=== PATIENT | female | born 1965 | race Caucasian/White ===

== ENCOUNTER 2022-07-10 12:51 | Emergency (ER) | payer OTHER ==
[~2022-07-10] VITALS: Ht 165.1 cm; Wt 89.3 kg
[2022-07-10 13:10] LABS: BASOPHILS % 0.9 % (0.0-2.0); EOSINOPHILS % 1.6 % (0.0-5.0); HEMATOCRIT. 34.4 % (36.0-48.0); HEMOGLOBIN. 11.2 g/dL (12.0-16.0); LYMPHOCYTES % 14.4 % (20.0-50.0); MEAN CORPUSCULAR HEMOGLOBIN 27.7 pg (28.0-32.0); MEAN CORPUSCULAR VOLUME 84.7 fL (81.0-99.0); MEAN PLATELET VOLUME 8.7 fl (7.4-10.4); NEUTROPHILS % 75.1 % (40.0-76.0); PLATELET 246 x1000/uL (130-400); RED BLOOD CELL COUNT 4.07 mill/uL (4.2-5.4); RED CELL DISTRIBUTION WIDTH 16.4 % (11.6-14.6)
[2022-07-10 13:26] LABS: CHLORIDE 95 mEq/L (98-107)
[2022-07-10 13:47] LABS: ETHANOL BLOOD < 10 mg/dL
[2022-07-10] MEDS ORDERED: IOHEXOL-350 100 ML BOTTLE ONE (15:14)
[2022-07-10] MEDS ORDERED: CLOPIDOGREL 75MG TABLET PO ONE (16:15)
[2022-07-10] MEDS ORDERED: ASPIRIN 81MG TABLET PO ONE (16:15)
[2022-07-10 21:58] VITALS: BP 154/70
== END 2022-07-10 23:59 | disposition short-term general hospital (02) ==
LOC: ER 12:51
DX: I63.9 Cerebral infarction, unspecified (principal); R53.1 Weakness; I12.0 Hypertensive chronic kidney disease with stage 5 chronic kidney disease or end stage renal disease; E11.22 Type 2 diabetes mellitus with diabetic chronic kidney disease; N18.6 End stage renal disease; Z99.2 Dependence on renal dialysis; E78.00 Pure hypercholesterolemia, unspecified
CPT/HCPCS: 36415; 70450; 70496; 70498; 71045; 80053; 80320; 85025; 87426; 93005; 99291; C9803; Q9967; Z7610; G0480

== ENCOUNTER 2022-07-27 09:30 | Inpatient (IN) | payer OTHER ==
[~2022-07-27] VITALS: Ht 165.1 cm; Wt 76.7 kg
[2022-07-27 11:04] LABS: BASOPHILS % 1.2 % (0.0-2.0); EOSINOPHILS % 5.8 % (0.0-5.0); HEMATOCRIT. 31.1 % (36.0-48.0); HEMOGLOBIN. 10.1 g/dL (12.0-16.0); LYMPHOCYTES % 32.3 % (20.0-50.0); MEAN CORPUSCULAR HEMOGLOBIN 28.5 pg (28.0-32.0); MEAN CORPUSCULAR VOLUME 87.6 fL (81.0-99.0); MEAN PLATELET VOLUME 8.9 fl (7.4-10.4); MONOCYTES % 9.2 % (2.0-8.0); NEUTROPHILS % 51.5 % (40.0-76.0); PLATELET 133 x1000/uL (130-400); RED BLOOD CELL COUNT 3.55 mill/uL (4.2-5.4)
[2022-07-27 11:05] LABS: CHLORIDE 100 mEq/L (98-107)
[2022-07-27 11:13] LABS: ETHANOL BLOOD < 10 mg/dL
[2022-07-27] MEDS ORDERED: IOHEXOL-350 100 ML BOTTLE ONE (11:14)
[2022-07-27 11:19] LABS: INR 1.1; PROTHROMBIN TIME 11.7 sec (9.6-11.0)
[2022-07-27] MEDS ORDERED: ASPIRIN 81MG TABLET PO ONE (13:00)
[2022-07-27] MEDS ORDERED: IPRATROPIUM/ALBUTEROL 0.5-3(2.5)MG/3ML NEB HHN PRN (15:00)
[2022-07-27] MEDS ORDERED: CLONIDINE 0.1MG TABLET PO PRN (15:00)
[2022-07-27] MEDS ORDERED: HYDROCODONE/ACETAMINOPHEN 10/325MG TABLET PO PRN (15:00)
[2022-07-27] MEDS ORDERED: ONDANSETRON HCL 4MG/2ML INJ IV PRN (15:00)
[2022-07-27] MEDS ORDERED: ACETAMINOPHEN 325MG TABLET PO PRN ×2 (15:00)
[2022-07-27] MEDS ORDERED: NALOXONE HCL 0.4MG/ML VIAL IV PRN (15:30)
[2022-07-27] MEDS ORDERED: ENOXAPARIN 30MG/0.3ML SYR SUBCUT SCH (21:00)
[2022-07-28] VITALS (27 sets, daily range): BP systolic 90–159; BP diastolic 44–76
[2022-07-28 05:27] LABS: BASOPHILS % 1.1 % (0.0-2.0); EOSINOPHILS % 4.9 % (0.0-5.0); HEMATOCRIT. 31.6 % (36.0-48.0); HEMOGLOBIN. 10.3 g/dL (12.0-16.0); LYMPHOCYTES % 33.3 % (20.0-50.0); MEAN CORPUSCULAR HEMOGLOBIN 28.6 pg (28.0-32.0); MEAN CORPUSCULAR VOLUME 87.6 fL (81.0-99.0); MEAN PLATELET VOLUME 8.9 fl (7.4-10.4); MONOCYTES % 9.1 % (2.0-8.0); NEUTROPHILS % 51.6 % (40.0-76.0); PLATELET 127 x1000/uL (130-400); RED BLOOD CELL COUNT 3.61 mill/uL (4.2-5.4); RED CELL DISTRIBUTION WIDTH 18.3 % (11.6-14.6)
[2022-07-28 06:00] LABS: T4 FREE 0.97 ng/dL (0.76-1.46)
[2022-07-28] MEDS: CLONIDINE 0.3MG TABLET PO PRN (07:15)
[2022-07-28] MEDS: LOSARTAN POTASSIUM 100 MG TABLET PO SCH (09:00)
[2022-07-28] MEDS: AMLODIPINE 10MG TABLET PO SCH (09:00)
[2022-07-28] MEDS: PANTOPRAZOLE SODIUM 40 MG/VIAL IV SCH (09:00)
[2022-07-28] MEDS ORDERED: AMLODIPINE 10MG TABLET PO SCH (09:00)
[2022-07-28] MEDS ORDERED: METOPROLOL TARTRATE 50MG TABLET PO SCH (09:15)
[2022-07-28] MEDS ORDERED: NICARDIPINE 100 MG in SODIUM CHLORIDE 0.9% 60 ML IV PRN (09:45)
[2022-07-28] MEDS: LEVETIRACETAM 500MG PREMIX 100 ML IV SCH ×3 (09:51→18:00)
[2022-07-28] MEDS: NICARDIPINE 100 MG in SODIUM CHLORIDE 0.9% 60 ML IV PRN (10:12)
[2022-07-28] MEDS: HYDRALAZINE HCL 100MG TABLET PO SCH ×2 (14:00→22:00)
[2022-07-28] MEDS: DEXT 5%/0.9% NACL 1,000 ML IV SCH (18:58)
[2022-07-28] MEDS: ATORVASTATIN CALCIUM 40MG TABLET PO SCH (20:15)
[2022-07-28] MEDS: METOPROLOL TARTRATE 100MG TABLET PO SCH (20:16)
[2022-07-29] VITALS (100 sets, daily range): BP systolic 97–162; BP diastolic 29–103
[2022-07-29 00:18] LABS: HEPATITIS B SURFACE ANTIGEN NEGATIVE
[2022-07-29] MEDS: LEVETIRACETAM 500MG PREMIX 100 ML IV SCH ×3 (01:56→21:15)
[2022-07-29 04:56] LABS: BASOPHILS % 1.9 % (0.0-2.0); EOSINOPHILS % 5.6 % (0.0-5.0); HEMATOCRIT. 33.9 % (36.0-48.0); HEMOGLOBIN. 10.9 g/dL (12.0-16.0); LYMPHOCYTES % 32.7 % (20.0-50.0); MEAN CORPUSCULAR HEMOGLOBIN 28.2 pg (28.0-32.0); MEAN PLATELET VOLUME 8.9 fl (7.4-10.4); MONOCYTES % 10.7 % (2.0-8.0); NEUTROPHILS % 49.1 % (40.0-76.0); PLATELET 135 x1000/uL (130-400); RED BLOOD CELL COUNT 3.85 mill/uL (4.2-5.4); RED CELL DISTRIBUTION WIDTH 17.8 % (11.6-14.6)
[2022-07-29] MEDS: HYDRALAZINE HCL 100MG TABLET PO SCH ×3 (05:31→21:53)
[2022-07-29] MEDS: DEXT 5%/0.9% NACL 1,000 ML IV SCH ×2 (05:33→19:48)
[2022-07-29] MEDS ORDERED: LIDOCAINE HCL/PF 1% 10 MG/ML 5ML VIAL ONE (07:39)
[2022-07-29] MEDS: LOSARTAN POTASSIUM 100 MG TABLET PO SCH (08:26)
[2022-07-29] MEDS: PANTOPRAZOLE SODIUM 40 MG/VIAL IV SCH (08:26)
[2022-07-29] MEDS: AMLODIPINE 10MG TABLET PO SCH (08:26)
[2022-07-29] MEDS: METOPROLOL TARTRATE 100MG TABLET PO SCH ×2 (08:27→21:53)
[2022-07-29] MEDS: NICARDIPINE 100 MG in SODIUM CHLORIDE 0.9% 60 ML IV PRN (09:35)
[2022-07-29] MEDS: ATORVASTATIN CALCIUM 40MG TABLET PO SCH (21:15)
[2022-07-30] VITALS (99 sets, daily range): BP systolic 75–176; BP diastolic 24–106
[2022-07-30 04:46] LABS: BASOPHILS % 1.4 % (0.0-2.0); EOSINOPHILS % 4.6 % (0.0-5.0); HEMATOCRIT. 30.4 % (36.0-48.0); HEMOGLOBIN. 9.9 g/dL (12.0-16.0); MEAN CORPUSCULAR HEMOGLOBIN 28.6 pg (28.0-32.0); MEAN CORPUSCULAR VOLUME 87.4 fL (81.0-99.0); MEAN PLATELET VOLUME 9.1 fl (7.4-10.4); MONOCYTES % 9.3 % (2.0-8.0); NEUTROPHILS % 52.7 % (40.0-76.0); PLATELET 125 x1000/uL (130-400); RED BLOOD CELL COUNT 3.47 mill/uL (4.2-5.4); RED CELL DISTRIBUTION WIDTH 17.4 % (11.6-14.6)
[2022-07-30] MEDS: HYDRALAZINE HCL 100MG TABLET PO SCH ×3 (05:04→21:50)
[2022-07-30] MEDS: LEVETIRACETAM 500MG PREMIX 100 ML IV SCH ×2 (08:21→21:50)
[2022-07-30] MEDS: LOSARTAN POTASSIUM 100 MG TABLET PO SCH (08:22)
[2022-07-30] MEDS: CARVEDILOL 12.5MG TABLET PO SCH ×2 (08:22→21:51)
[2022-07-30] MEDS: AMLODIPINE 10MG TABLET PO SCH (08:22)
[2022-07-30] MEDS: PANTOPRAZOLE SODIUM 40 MG/VIAL IV SCH (08:23)
[2022-07-30] MEDS ORDERED: METHYLPREDNISOLONE SOD SUCC 40 MG/ML VIAL IV ONE (09:00)
[2022-07-30] MEDS: HYDRALAZINE 20MG/ML VIAL IV PRN (13:34)
[2022-07-30] MEDS: DEXT 5%/0.9% NACL 1,000 ML IV SCH ×2 (17:38→23:11)
[2022-07-30] MEDS: ATORVASTATIN CALCIUM 40MG TABLET PO SCH (21:50)
[2022-07-31] VITALS (61 sets, daily range): BP systolic 92–184; BP diastolic 38–116
[2022-07-31 05:20] LABS: BASOPHILS % 0.9 % (0.0-2.0); EOSINOPHILS % 4.4 % (0.0-5.0); HEMATOCRIT. 31.9 % (36.0-48.0); HEMOGLOBIN. 10.3 g/dL (12.0-16.0); LYMPHOCYTES % 34.5 % (20.0-50.0); MEAN CORPUSCULAR HEMOGLOBIN 28.2 pg (28.0-32.0); MEAN CORPUSCULAR VOLUME 87.1 fL (81.0-99.0); MEAN PLATELET VOLUME 8.9 fl (7.4-10.4); MONOCYTES % 10.9 % (2.0-8.0); NEUTROPHILS % 49.3 % (40.0-76.0); PLATELET 129 x1000/uL (130-400); RED BLOOD CELL COUNT 3.66 mill/uL (4.2-5.4); RED CELL DISTRIBUTION WIDTH 17.3 % (11.6-14.6)
[2022-07-31] MEDS: HYDRALAZINE HCL 100MG TABLET PO SCH ×3 (05:47→21:46)
[2022-07-31] MEDS: HYDRALAZINE 20MG/ML VIAL IV PRN (05:56)
[2022-07-31] MEDS ORDERED: DEXTROSE 50% WATER 50ML SYRINGE IV PRN (07:30)
[2022-07-31] MEDS: BLOOD SUGAR DIAGNOSTIC STRIP TEST SCH ×4 (07:41→21:51)
[2022-07-31] MEDS: INSULIN LISPRO 100 UNITS/ML SUBCUT SCH ×4 (07:41→21:54)
[2022-07-31] MEDS: CARVEDILOL 12.5MG TABLET PO SCH ×2 (08:10→21:00)
[2022-07-31] MEDS: PANTOPRAZOLE SODIUM 40 MG/VIAL IV SCH (08:10)
[2022-07-31] MEDS: LOSARTAN POTASSIUM 100 MG TABLET PO SCH (08:10)
[2022-07-31] MEDS: AMLODIPINE 10MG TABLET PO SCH (08:10)
[2022-07-31] MEDS: LEVETIRACETAM 500MG PREMIX 100 ML IV SCH (08:11)
[2022-07-31] MEDS ORDERED: CLOPIDOGREL 75MG TABLET PO SCH (09:00)
[2022-07-31] MEDS: CLONIDINE 0.3MG TABLET PO PRN (09:34)
[2022-07-31] MEDS: ATORVASTATIN CALCIUM 40MG TABLET PO SCH (21:47)
== END 2022-07-31 23:30 | disposition short-term general hospital (02) | DRG 64 ==
LOC: ER 09:38 → EDBEDREQ 13:36 → EDBEDREQTM 13:36 → EDBEDREQSVC 07-28 07:39 → EDBEDREQTM 07-28 09:32 → EDBEDREQSVC 07-28 09:32 → ENRESERV 07-28 16:01 → MICUSO 07-28 16:49 → 8WST 07-31 14:59
PROVIDERS: ADMIT Internal Medicine; ATTEND Internal Medicine
PROC: 5A1D70Z Performance of Urinary Filtration, Intermittent, Less than 6 Hours Per Day (ICD-10-PCS; 2022-07-28)
PROC: 05H633Z Insertion of Infusion Device into Left Subclavian Vein, Percutaneous Approach (ICD-10-PCS; 2022-07-29)
PROC: B547ZZA Ultrasonography of Left Subclavian Vein, Guidance (ICD-10-PCS; 2022-07-29)
PROC: 4A00X4Z Measurement of Central Nervous Electrical Activity, External Approach (ICD-10-PCS; principal; 2022-07-30)
PROC: 5A1D70Z Performance of Urinary Filtration, Intermittent, Less than 6 Hours Per Day (ICD-10-PCS; 2022-07-30)
DX: I63.81 Other cerebral infarction due to occlusion or stenosis of small artery (principal); G93.6 Cerebral edema; I61.9 Nontraumatic intracerebral hemorrhage, unspecified; N18.6 End stage renal disease; E11.52 Type 2 diabetes mellitus with diabetic peripheral angiopathy with gangrene; E87.1 Hypo-osmolality and hyponatremia; G93.40 Encephalopathy, unspecified; I16.1 Hypertensive emergency; G81.94 Hemiplegia, unspecified affecting left nondominant side; I12.0 Hypertensive chronic kidney disease with stage 5 chronic kidney disease or end stage renal disease; E44.0 Moderate protein-calorie malnutrition; E11.22 Type 2 diabetes mellitus with diabetic chronic kidney disease; R47.1 Dysarthria and anarthria; Z20.822 Contact with and (suspected) exposure to COVID-19; D63.1 Anemia in chronic kidney disease; E11.65 Type 2 diabetes mellitus with hyperglycemia; E66.9 Obesity, unspecified; R29.707 NIHSS score 7; E78.5 Hyperlipidemia, unspecified; E88.09 Other disorders of plasma-protein metabolism, not elsewhere classified; E87.5 Hyperkalemia; E78.00 Pure hypercholesterolemia, unspecified; Z88.8 Allergy status to other drugs, medicaments and biological substances; Z99.2 Dependence on renal dialysis; Z91.15 Patient's noncompliance with renal dialysis; Z68.28 Body mass index [BMI] 28.0-28.9, adult
CPT/HCPCS: 36415; 36573; 70496; 70498; 70551; 71045; 80048; 80053; 80061; 80307; 80320; 80329; 82140; 82962; 83036; 84439; 84443; 84484; 85025; 86705; 86709; 86803; 87340; 87426; 90935; 92523; 92610; 93005; 93306; 93880; 93970; 97162; 97166; 99291; C1725; C9113; C9803; J0360; J1650; J1815; J1953; J3490; J7050; Q9967; G0480